=== PATIENT | male | born 1980 | race African-American/Black ===

== ENCOUNTER 2019-02-14 16:31 | Emergency (ER) | payer OTHER ==
[2019-02-14 17:21] LABS: HEMATOCRIT 46.9 % (39.0-50.0); HEMOGLOBIN 15.4 g/dl (14.0-18.0); IMMATURE GRANULOCYTES 0.4 % (0.0-5.0); MEAN CELL VOLUME 87.8 fL CALC (80.0-100.0); MEAN CORPUSCULAR HGB 28.8 pG CALC (26.0-32.0); MEAN CORPUSCULAR HGB CONC 32.8 g/L CALC (32.0-36.0); NEUT# 6.43 thou/uL (1.82-7.42); RED BLOOD COUNT 5.34 mill/uL (4.70-6.10); RED CELL DISTRI WIDTH 13.2 % (11.5-15.5)
[2019-02-14 17:30] LABS: URINE BLOOD DIPSTICK NEGATIVE (NEGATIVE); URINE COLOR YELLOW; URINE GLUCOSE - DIPSTICK NEGATIVE (NEGATIVE); URINE KETONE 40 mg/dL (NEGATIVE); URINE LEUK ESTERASE NEGATIVE (NEGATIVE); URINE NITRITE - DIPSTICK NEGATIVE (Negative); URINE PH 5.5 (4.5-8.0); URINE PROTEIN - DIPSTICK NEGATIVE (NEG-TRACE); URINE SPECIFIC GRAVITY >=1.030; URINE UROBILINOGEN - DIPSTICK 0.2 E.U./dL (0.2)
[2019-02-14 17:31] LABS: BARBITURATES NEGATIVE (NEGATIVE); COCAINE NEGATIVE (NEGATIVE); METHADONE NEGATIVE (NEGATIVE); OXCYCODONE NEGATIVE (NEGATIVE); TETRAHYDROCANNABIONOL NEGATIVE (NEGATIVE); TRICYLIC ANTIDEPRESSANTS NEGATIVE (NEGATIVE); URINE BILIRUBIN - DIPSTICK SMALL (NEGATIVE)
[2019-02-14 17:45] LABS: ALBUMIN 5.3 g/dL (3.2-5.0); ALKALINE PHOSPHATASE 90 u/l (38-126); ANION GAP 19 (6-22 (CALC)); BILIRUBIN, TOTAL 0.9 mg/dL (0.0-1.4); BUN 29 mg/dL (9-20); BUN/CREATININE RATIO 20 (12-20 (CALC)); CARBON DIOXIDE 27 mmol/l (22-30); CHLORIDE 98 mmol/l (95-108); CREATININE 1.5 mg/dL (0.7-1.3); GFR 52 ML/MIN (>=60 (CALC)); GFR FOR AFR.AMER. > 60 ML/MIN (>=60 (CALC)); LIPASE 35 u/l (23-300); SGOT/AST 39 u/l (17-59); SODIUM 138 mmol/l (137-146); TOTAL PROTEIN 9.9 g/dL (6.3-8.2)
[2019-02-14 17:56] LABS: MYOGLOBIN 137 ng/mL (0 - 121)
[2019-02-14 18:27] LABS: POTASSIUM 6.1 mmol/l (3.5-5.1)
[2019-02-14] MEDS ORDERED: ZOFRAN4 M1 PO (19:08)
[2019-02-14 21:02] VITALS: BP 112/68
== END 2019-02-14 21:12 | disposition home or self-care (01) | DRG 641 ==
LOC: ED 16:31
PROVIDERS: Emergency Medicine
DX: E86.0 Dehydration (principal); E87.5 Hyperkalemia; X30.XXXA Exposure to excessive natural heat, initial encounter; Y93.89 Activity, other specified; Y92.73 Farm field as the place of occurrence of the external cause; Y99.0 Civilian activity done for income or pay

== ENCOUNTER 2019-03-10 09:28 | Emergency (ER) | payer SELFPAY ==
[~2019-03-10] VITALS: Ht 177.8 cm; Wt 68.0 kg
[~2019-03-10 09:28] MED LIST: ZOFRAN4 M1 PO
[2019-03-10 10:25] LABS: HEMATOCRIT 41.1 % (39.0-50.0); HEMOGLOBIN 13.3 g/dl (14.0-18.0); IMMATURE GRANULOCYTES 0.3 % (0.0-5.0); MEAN CELL VOLUME 91.1 fL CALC (80.0-100.0); MEAN CORPUSCULAR HGB 29.5 pG CALC (26.0-32.0); MEAN CORPUSCULAR HGB CONC 32.4 g/L CALC (32.0-36.0); NEUT# 1.94 thou/uL (1.82-7.42); RED BLOOD COUNT 4.51 mill/uL (4.70-6.10); RED CELL DISTRI WIDTH 13.3 % (11.5-15.5)
[2019-03-10 10:46] LABS: ALBUMIN 4.3 g/dL (3.2-5.0); ALKALINE PHOSPHATASE 62 u/l (38-126); ANION GAP 13 (6-22 (CALC)); BILIRUBIN, TOTAL 0.8 mg/dL (0.0-1.4); BUN 21 mg/dL (9-20); BUN/CREATININE RATIO 24 (12-20 (CALC)); CARBON DIOXIDE 27 mmol/l (22-30); CHLORIDE 104 mmol/l (95-108); CREATININE 0.8 mg/dL (0.7-1.3); GFR > 60 ML/MIN (>=60 (CALC)); GFR FOR AFR.AMER. > 60 ML/MIN (>=60 (CALC)); POTASSIUM 4.4 mmol/l (3.5-5.1); SGOT/AST 29 u/l (17-59); SODIUM 140 mmol/l (137-146)
[2019-03-10 10:47] LABS: TOTAL PROTEIN 7.9 g/dL (6.3-8.2)
[2019-03-10] MEDS ORDERED: AMOXICILLIN500 MG PO (11:32)
[2019-03-10 11:40] VITALS: BP 121/74
== END 2019-03-10 11:40 | disposition home or self-care (01) | DRG 153 ==
LOC: ED 09:28
PROVIDERS: Emergency Medicine
DX: J02.9 Acute pharyngitis, unspecified (principal)

== ENCOUNTER 2019-08-17 21:29 | Inpatient (IN) | payer SELFPAY ==
[~2019-08-17] VITALS: Ht 177.8 cm; Wt 66.4 kg
[~2019-08-17 21:29] MED LIST changes: +AMOXICILLIN500 MG PO
--- NOTE | 2019-08-17 21:38 | NUR ---
PATIENT AMBULATORY TO ROOM 13 FOR BEDSIDE TRIAGE. UNDRESSED INTO A GOWN. AWAITING MD GUZMAN.
[2019-08-17] MEDS ORDERED: CIPROFLOXACN500 MG PO (21:46)
--- NOTE | 2019-08-17 21:47 | NUR ---
PT PRESENTS WITH LOWER ABD PAIN AND VOMITING THAT STARTED AT 1500 TODAY. PT HAS HAD TWO VOMITING EPISIODES SINCE THEN. PT DENIES ANY OTHER SYMPTOMS. AOX4. PERRLA. DENIES EATING ANYTHING UNUSUAL AND LAST BM WAS THIS MORNING. WILL CONTINUE TO [facility].
--- NOTE | 2019-08-17 21:56 | NUR ---
GAVE REPORT TO ALFREDO
[2019-08-17 22:00] LABS: IMMATURE GRANULOCYTES 0.3 % (0.0-5.0); MEAN CELL VOLUME 90.4 fL CALC (80.0-100.0); MEAN CORPUSCULAR HGB 29.5 pG CALC (26.0-32.0); MEAN CORPUSCULAR HGB CONC 32.6 g/dL CAL (32.0-36.0); NEUT# 9.8 thou/uL (1.82-7.42); RED BLOOD COUNT 5.86 mill/uL (4.70-6.10); RED CELL DISTRI WIDTH 12.9 % (11.5-15.5)
[2019-08-17 22:01] LABS: HEMOGLOBIN 17.3 g/dl (14.0-18.0)
[2019-08-17 22:34] LABS: URINE BLOOD DIPSTICK SMALL (NEGATIVE); URINE COLOR YELLOW; URINE GLUCOSE - DIPSTICK NEGATIVE (NEGATIVE); URINE KETONE 15 mg/dL (NEGATIVE); URINE LEUK ESTERASE NEGATIVE (NEGATIVE); URINE NITRITE - DIPSTICK NEGATIVE (Negative); URINE PROTEIN - DIPSTICK 100 mg/dL (NEG-TRACE); URINE SPECIFIC GRAVITY >=1.030; URINE UROBILINOGEN - DIPSTICK 0.2 E.U./dL (0.2)
[2019-08-17 22:35] LABS: URINE BILIRUBIN - DIPSTICK NEGATIVE (NEGATIVE)
[2019-08-17 22:37] LABS: ALBUMIN 5.7 g/dL (3.2-5.0); BILIRUBIN, TOTAL 1.2 mg/dL (0.0-1.4); POTASSIUM 6.2 mmol/l (3.5-5.1)
[2019-08-17 22:42] LABS: URINE WBC 0-2 WBC/hpf (0-5)
[2019-08-17 22:43] LABS: URINE CALCIUM OXALATE CRYSTALS MANY lpf
[2019-08-17 22:59] LABS: MAGNESIUM 2.5 mg/dL (1.6-2.3)
--- NOTE | 2019-08-17 23:11 | NUR ---
PT MEDICATED PER MD ORDER. D10 AND NS INFUSING TO LAC SITE WITHOUT DIFFICULTY. COMPLAINING OF FLANK AND BACK PAIN, DR ROMAN NOTIFIED. NEW ORDER RECEIVED FOR TORADOL.
--- NOTE | 2019-08-18 00:08 | NUR ---
PT REPORTS PAIN LEVEL 2/10 POST PAIN MEDICATION ADMINISTRATION. RESTING ON STRETCHER IN NO APPARENT DISTRESS. RESP EVEN AND UNLABORED. SKIN WARM AND DRY. IVF INFUSING WITHOUT DIFFICULTY. VERBALIZES NO NEEDS AT THIS TIME.
--- NOTE | 2019-08-18 00:20 | NUR ---
REPORT ATTEMPTED, NURSE TO CALL BACK
--- NOTE | 2019-08-18 00:30 | NUR ---
REPORT GIVEN TO FRANCISCO ARCHER. PATIENT READIED FOR TRANSPORT TO FLOOR.
--- NOTE | 2019-08-18 00:43 | NUR ---
PT ARRIVED TO THE FLOOR VIA WC ACCOMPANIED BY ED NURSE. PT APPEARS STABLE AT THIS TIME. AIDE IS IN W/PT OBTAINING V/S AND ORIENTING PT TO ROOM
[2019-08-18 01:09] VITALS: BP 142/74
--- NOTE | 2019-08-18 01:30 | NUR ---
IV PUMP WAS SOUNDING, PT ARM IS POSITIONAL, HE VERBALIZED UNDERSTANDING UPON EXPLAINING THIS TO HIM. DENIES ANY OTHER NEEDS AT THIS TIME.
[2019-08-18 03:55] VITALS: BP 91/48
--- NOTE | 2019-08-18 04:15 | NUR ---
LAB IS IN W/ PT AT THIS TIME.
[2019-08-18 06:00] LABS: CREATININE 1.9 mg/dL (0.7-1.3); POTASSIUM 4.8 mmol/l (3.5-5.1)
--- NOTE | 2019-08-18 06:00 | NUR ---
PT REPORTS FEELING BETTER, DENIES PAIN/N/V
[2019-08-18 08:00] VITALS: BP 109/54
--- NOTE | 2019-08-18 08:00 | NUR ---
ASSESSMENT IS COMPLTED; IV SITE IS FREE FROM REDNESS OR EDEMA.HR IS REG,PULSES ARE STRONG X4, ABD IS SOFT WITH ACTIVE BS.BREATH SOUNDS ARE CLEAR,BILATERALLY, NO C/O NAUSEA OR VOMITING. TELE MONITOR IN PLACE. CONTINUE TO OSBERVE AND MONITOR.,
--- NOTE | 2019-08-18 10:15 | NUR ---
PT IS RELAXING IN BED WITH NO DISTRESS NOTED.
[2019-08-18 10:30] VITALS: BP 110/59
--- NOTE | 2019-08-18 12:15 | NUR ---
PT IS RELAXING IN BED WITH NO DISTRESS NOTED. IV SITE IS FREE FROM REDNESS OR EDEMA.
[2019-08-18 15:35] VITALS: BP 105/53
--- NOTE | 2019-08-18 16:15 | NUR ---
PT IS RELAXING IN BED WITH NO DISTRESS NOTED. IV SITE IS FREE FROM REDNESS OR EDEMA.
--- NOTE | 2019-08-18 20:10 | NUR ---
PT ASSESSMENT COMPLETED AND MEDICATIONS ADMINISTERED ORDERS PROVIDE. PT EDUCATED ON NEW MEDICATION. PT REQUESTED PHONE TO BE PLUGGED INTO BORDER GUARD/ASSISTED. PROVIDED PT W/JUICE AND YOGURT. DENIES ANY OTHER NEEDS AT THIS TIME.
[2019-08-18 21:10] VITALS: BP 109/63
--- NOTE | 2019-08-18 21:20 | NUR ---
PT ASSISTED GETTING INTO SHOWER. IV COVERED FOR PROTECTION AND PT INSTRUCTED TO CALL USING [employer] IF ANY NEEDS OCCUR.
[2019-08-19 00:15] VITALS: BP 129/72
--- NOTE | 2019-08-19 00:15 | NUR ---
PT V/S ASSESSED, PT DENIES ANY OTHER NEEDS AT THIS TIME. NO S/O DISTRESS NOTED.
--- NOTE | 2019-08-19 03:00 | NUR ---
IVF REPLENISHED, PT DENIES ANY OTHER NEEDS. LIGHTS AND TV ARE OFF.
[2019-08-19 05:00] VITALS: BP 120/70
[2019-08-19 05:29] LABS: MEAN CELL VOLUME 92.7 fL CALC (80.0-100.0); MEAN CORPUSCULAR HGB 30.1 pG CALC (26.0-32.0); MEAN CORPUSCULAR HGB CONC 32.5 g/dL CAL (32.0-36.0); RED BLOOD COUNT 3.82 mill/uL (4.70-6.10); RED CELL DISTRI WIDTH 13.3 % (11.5-15.5)
[2019-08-19 05:31] LABS: HEMATOCRIT 35.4 % (39.0-50.0); HEMOGLOBIN 11.5 g/dl (14.0-18.0)
[2019-08-19 05:42] LABS: ANION GAP 9 (6-22 (CALC)); BUN 22 mg/dL (9-20); BUN/CREATININE RATIO 24 (12-20 (CALC)); CARBON DIOXIDE 23 mmol/l (22-30); CHLORIDE 110 mmol/l (95-108); CPK 256 u/l (52-200); MAGNESIUM 1.9 mg/dL (1.6-2.3); POTASSIUM 4.7 mmol/l (3.5-5.1); SODIUM 137 mmol/l (137-146)
[2019-08-19 05:46] LABS: CREATININE 0.9 mg/dL (0.7-1.3); GFR > 60 ML/MIN (>=60 (CALC)); GFR FOR AFR.AMER. > 60 ML/MIN (>=60 (CALC))
--- NOTE | 2019-08-19 07:16 | NUR ---
REPORT GIVEN BY SUZI SINGH
[2019-08-19 07:50] VITALS: BP 127/76
--- NOTE | 2019-08-19 07:50 | NUR ---
ASSESSMENT IS COMPLETED: IV SITE IS FREE FROM REDNESS OR EDEMA. HR IS REG,PULSES ARE STRONG X4, ABD IS SOFT WITH ACTIVE BS.BREATH SOUNDS ARE CLEAR,BILATERALLY NO C/O SOB. PT C/O UNABLE TO SLEEP LAST NIGHT. CONTINUE TO OSBERVE AND MONITOR.
[2019-08-19 11:04] VITALS: BP 129/76
--- NOTE | 2019-08-19 12:15 | NUR ---
PT IS RELAXING IN BED WITH NO DISTRESS NOTED. IV SITE IS FREE FROM REDNESS OR EDEMA. CONTINUE TO OSBERVE AND MONITOR
[2019-08-19 15:17] VITALS: BP 137/74
--- NOTE | 2019-08-19 16:15 | NUR ---
PT IS RELAXING IN BED WITH NO DISTRESS NOTED. IV SITE IS FREE FROM REDNESS OR EDEMA.
[2019-08-19] MEDS ORDERED: BACTRIM DS1 TAB PO (16:54)
[2019-08-19] MEDS ORDERED: OMEPRAZOLE20 M1 PO (16:54)
--- NOTE | 2019-08-19 17:33 | NUR ---
DISCHARGE INSTRUCTIONS GIVEN AND VERBALIZED UNDERSTANDING. IV SITE DISCONTINUED CATHETER INTACT, Discharge instructions given. Patient verbalizes understanding of same. Discharged in stable condition via Wheelchair to Home with family. All belongings sent with pt.
== END 2019-08-19 17:29 | disposition home or self-care (01) | DRG 683 ==
LOC: ED 21:29 → ED-I 23:50 → ED 08-18 00:16 → MS2 08-18 00:17
PROVIDERS: Family Medicine; Nurse Practitioner Family; ADMIT Internal Medicine; ATTEND Internal Medicine
DX: N17.9 Acute kidney failure, unspecified (principal); M62.82 Rhabdomyolysis; N39.0 Urinary tract infection, site not specified; E87.5 Hyperkalemia; E86.0 Dehydration; K21.9 Gastro-esophageal reflux disease without esophagitis; X30.XXXA Exposure to excessive natural heat, initial encounter; Y93.89 Activity, other specified; Y92.73 Farm field as the place of occurrence of the external cause; Y99.0 Civilian activity done for income or pay